=== PATIENT | male | born 1960 | race Hispanic/Latino ===

== ENCOUNTER 2017-11-17 20:14 | Inpatient (IN) | payer MEDICAID ==
[~2017-11-17] VITALS: Ht 172.7 cm; Wt 62.6 kg
[2017-11-17 21:09] LABS: BASOPHILS # (AUTO) 0.1 (0.0-0.1); BASOPHILS % 0.9 % (0.0-1.0); EOSINOPHILS # (AUTO) 0.3 (0.0-0.4); EOSINOPHILS % 5.7 % (0.0-6.0); HEMATOCRIT 26.5 % (38.2-49.6); HEMOGLOBIN 9.2 g/dL (14.0-18.0); LYMPHOCYTES % 17.2 % (18.0-39.1); MEAN CORPUSCULAR HEMOGLOBIN 33.8 pg (28-32); MEAN CORPUSCULAR HGB CONC 34.7 g/dL (31-35); MEAN CORPUSCULAR VOLUME 97.4 fL (81-99); MONOCYTES # (AUTO) 0.5 (0.2-0.8); MONOCYTES % 9.3 % (4.4-11.3); NEUTROPHILS # (AUTO) 3.7 (2.1-6.9); NEUTROPHILS % 66.5 % (38.7-80.0); PLATELET COUNT 65 x10e3/uL (140-360); RED BLOOD COUNT 2.72 x10e6/uL (4.3-5.7); RED CELL DISTRIBUTION WIDTH 14.1 % (11.7-14.4)
[2017-11-17] MEDS: LEVOFLOXACIN 500MG/D5W 100ML 100 ML IV SCH (21:22)
[2017-11-17 21:30] LABS: ALANINE AMINOTRANSFERASE 24 IU/L (0-55); ALBUMIN 2.7 g/dL (3.5-5.0); ALBUMIN/GLOBULIN RATIO 0.8 (0.8-2.0); ALKALINE PHOSPHATASE 125 IU/L (40-150); ANION GAP 12.2 mmol/L (8-16); BLOOD UREA NITROGEN 19 mg/dL (7-26); BUN/CREATININE RATIO 16 (6-25); CALCIUM 8.3 mg/dL (8.4-10.2); CARBON DIOXIDE 23 mmol/L (22-29); CHLORIDE 107 mmol/L (98-107); CREATININE, SERUM 1.21 mg/dL (0.72-1.25); EST GLOMERULAR FILTRATION RATE > 60 ML/MIN (60-); GLUCOSE 118 mg/dL (74-118); POTASSIUM 4.2 mmol/L (3.5-5.1); SODIUM 138 mmol/L (136-145)
[2017-11-17 21:31] LABS: CLARITY,URINE CLOUDY (CLEAR); COLOR,URINE YELLOW (YELLOW); KETONES,URINE NEGATIVE (NEGATIVE); LEUKOCYTE ESTERASE ,URINE TRACE (NEGATIVE); NITRITE,URINE POSITIVE (NEGATIVE); PROTEIN,URINE DIPSTICK TRACE (NEGATIVE); URINE UROBILINOGEN 1 mg/dL (0.2 - 1)
[2017-11-17 21:32] LABS: BILIRUBIN,URINE 1+ (NEGATIVE)
[2017-11-17 21:44] LABS: BACTERIA,URINE MANY /HPF; WBC,URINE (MAN) 21-50 /HPF (0-5)
[2017-11-17 21:45] LABS: EPITHELIAL CELLS,URINE FEW /LPF; MUCUS,URINE MANY (RARE)
[2017-11-17] MEDS: VANCOMYCIN 1GM/NS 250 ML 250 ML IV SCH (22:15)
[2017-11-17] MEDS ORDERED: ACETAMINOPHEN 325 MG TAB PO PRN (22:45)
[2017-11-17] MEDS: SODIUM CHLORIDE 0.9% 1000ML 1,000 ML IV SCH (23:25)
[2017-11-17] MEDS ORDERED: DESCOVY PO (23:30)
[2017-11-17] MEDS ORDERED: LACTULOSE10 GM/151 PO (23:30)
[2017-11-17] MEDS ORDERED: VENTOLIN HFA18 GM INH (23:30)
[2017-11-17] MEDS ORDERED: TIVICAY PO (23:30)
[2017-11-17] MEDS ORDERED: OMEPRAZOLE20 MG PO (23:30)
[2017-11-17] MEDS ORDERED: FUROSEMIDE20 MG PO (23:30)
[2017-11-17] MEDS ORDERED: ZINC50 MG PO (23:30)
[2017-11-17] MEDS ORDERED: PROPRANOLOL HCL10 MG PO (23:30)
[2017-11-17] MEDS ORDERED: SPIRONOLACTONE50 MG PO (23:30)
[2017-11-17] MEDS: MORPHINE SULFATE 2 MG/ML SYR IV PRN (23:48)
[2017-11-17] MEDS: ONDANSETRON HCL INJ 2 MG/ML VIAL IV PRN (23:49)
[2017-11-18 06:15] LABS: BASOPHILS # (AUTO) 0.1 (0.0-0.1); BASOPHILS % 1.1 % (0.0-1.0); EOSINOPHILS # (AUTO) 0.4 (0.0-0.4); EOSINOPHILS % 8.1 % (0.0-6.0); HEMATOCRIT 23.8 % (38.2-49.6); HEMOGLOBIN 8.2 g/dL (14.0-18.0); LYMPHOCYTES # (AUTO) 0.9 (1.0-3.2); LYMPHOCYTES % 18.3 % (18.0-39.1); MEAN CORPUSCULAR HEMOGLOBIN 33.9 pg (28-32); MEAN CORPUSCULAR HGB CONC 34.5 g/dL (31-35); MEAN CORPUSCULAR VOLUME 98.3 fL (81-99); MONOCYTES # (AUTO) 0.4 (0.2-0.8); MONOCYTES % 9.4 % (4.4-11.3); NEUTROPHILS % 62.7 % (38.7-80.0); PLATELET COUNT 64 x10e3/uL (140-360); RED BLOOD COUNT 2.42 x10e6/uL (4.3-5.7); RED CELL DISTRIBUTION WIDTH 14.1 % (11.7-14.4)
[2017-11-18 06:30] LABS: ALANINE AMINOTRANSFERASE 22 IU/L (0-55); ALBUMIN 2.4 g/dL (3.5-5.0); ALBUMIN/GLOBULIN RATIO 0.8 (0.8-2.0); ALKALINE PHOSPHATASE 94 IU/L (40-150); ANION GAP 9.3 mmol/L (8-16); BLOOD UREA NITROGEN 17 mg/dL (7-26); BUN/CREATININE RATIO 15 (6-25); CALCIUM 7.6 mg/dL (8.4-10.2); CARBON DIOXIDE 23 mmol/L (22-29); CHLORIDE 109 mmol/L (98-107); EST GLOMERULAR FILTRATION RATE > 60 ML/MIN (60-); GLUCOSE 92 mg/dL (74-118); POTASSIUM 4.3 mmol/L (3.5-5.1); SODIUM 137 mmol/L (136-145)
[2017-11-18] MEDS: MORPHINE SULFATE 2 MG/ML SYR IV PRN (07:42)
[2017-11-18] MEDS: SODIUM CHLORIDE 0.9% 1000ML 1,000 ML IV SCH ×2 (07:42→17:52)
[2017-11-18] MEDS: ONDANSETRON HCL INJ 2 MG/ML VIAL IV PRN (07:42)
[2017-11-18] MEDS: VANCOMYCIN 1GM/NS 250 ML 250 ML IV SCH ×2 (10:08→22:21)
[2017-11-18 13:30] VITALS: BP 141/78
[2017-11-18] MEDS ORDERED: ALBUTEROL SULFATE HFA 8GM INHALATION AEROSOL INH PRN (15:45)
[2017-11-18] MEDS ORDERED: BACTRIM DS TAB1 EACH PO (15:58)
[2017-11-18] MEDS ORDERED: FERROUS SULFAT325 MG (15:58)
[2017-11-18] MEDS ORDERED: SYMBICORT 80-10.2 GM INH (15:58)
[2017-11-18 15:59] VITALS: BP 133/63
[2017-11-18] MEDS: TRIMETHOPRIM/SULFAMETHOXAZOLE 160-800 MG TAB PO SCH (17:51)
[2017-11-18] MEDS: LACTULOSE SYRUP 20 GM/30 ML UDC PO SCH (17:52)
[2017-11-18] MEDS: FERROUS SULFATE 325 MG TAB PO SCH (17:52)
[2017-11-18] MEDS: PROPRANOLOL HCL 10 MG TAB PO SCH (17:52)
[2017-11-18] MEDS: BUDESONIDE/FORMOTEROL FUMARATE 80/4.5MCG 6.9 GM INH AEROSOL IH SCH (17:54)
--- NOTE | 2017-11-18 18:41 | History and Physical ---
CHIEF COMPLAINT: Right lower extremity cellulitis. HISTORY OF PRESENT ILLNESS: A 57-year-old male, morbidly obese, with history of hypertension and HIV, currently on antiretroviral medication, for which he goes to [facility] in [place] in which he presents to the ED with complaints of right lower extremity redness, cellulitis, and warm to touch that began . Patient reports that he had woken up on evening with questionable subjective fever. He reports that his right lower extremity progressively got worse with worsening swelling and redness. He denies any chest pain, palpitation, nausea, or vomiting. Patient reports that he has not had this in the past. He denies any other complaints at this time. He is not sure if he had any kind of insect bite that occurred to that right lower extremity. REVIEW OF SYSTEMS PERTINENT POSITIVE: Right lower extremity cellulitis, redness, erythema, and tender to palpation. PERTINENT NEGATIVE: Denies any chest pain, palpitation, nausea, vomiting, diarrhea, dysuria, hematuria, frequency, urgency, lightheadedness, dizziness, abdominal pain, headache, shortness of breath, fever, cough, congestion, or any other complaints. The rest of 14-point review of systems have been reviewed with the patient and are negative. ALLERGIES: TO PENICILLIN. HOME MEDICATIONS: Please see med reconciliation form. PAST MEDICAL HISTORY: HIV and hypertension. FAMILY HISTORY: Hypertension and diabetes. SOCIAL HISTORY: No drugs, no alcohol, does not smoke. PHYSICAL EXAMINATION VITAL SIGNS: Temperature is 98.8, pulse 68, respiratory rate is 18, blood pressure is 127/68, and pulse ox is 99% on room air. LABORATORY DATA: Lab findings show white count of 4.7, hemoglobin 8.2, hematocrit is 24, and platelets of 64. Chemistry: Sodium 137, potassium 4.3, chloride 109, bicarb 23, anion gap of 9, BUN 17, creatinine 1.1, glucose 92, lactic acid 9.7, calcium 7.6. Total bilirubin was 2.3, AST 34, ALT 22, alk phos 94, and his albumin was 2.4. Urinalysis showed a UA with wbc's 21-50, leukocyte esterase trace, and positive nitrite. MICROBIOLOGY: Blood and urine cultures are pending. IMAGING STUDIES: None. PHYSICAL EXAM GENERAL: Not in acute distress, alert and oriented x3, cooperative on exam. HEENT: Head normocephalic, atraumatic. Eyes, pupils equal and reactive to light bilaterally. Extraocular movements intact bilaterally. Throat, no evidence of any erythema or exudates in the posterior pharynx. Has poor dentition. NECK: Supple with good range of motion throughout. PULMONARY: Clear to auscultation bilaterally. No wheezing. No rales. No rhonchi. No crackles appreciated. CARDIOVASCULAR: Positive S1 and S2. No murmurs, rubs, or gallops appreciated. ABDOMEN: Soft, nondistended, and nontender to palpation. Bowel sounds present. MUSCULOSKELETAL: Strength is 5/5 throughout. No evidence of any musculoskeletal deficit on examination. No weakness appreciated. NEUROLOGIC: Cranial nerves II through XII grossly intact. No evidence of any neurologic deficits on exam. SKIN: Right lower extremity redness and tender to palpation with some right leg swelling. PSYCHIATRIC: Normal affect and mood. EXTREMITIES: Right lower extremity swelling, tender to palpation, and warm to touch. IMPRESSION 1. Right lower extremity cellulitis, possible underlying insect bite. 2. Anemia. 3. Thrombocytopenia. 4. Hypertension. 5. Human immunodeficiency virus. PLAN: At this time, we will continue with IV vancomycin and Levaquin. Patient has a PENICILLIN allergy. ID has been consulted. We are going to resume all his antihypertensive medications. Resume his antiretroviral medication as well. ID has been consulted to evaluate. Monitor blood and urine cultures. SCDs for DVT prophylaxis as he is currently thrombocytopenic and not a good candidate for any anticoagulation. Put on a regular diet. We will continue to follow. I will also order a lower extremity venous Doppler to evaluate for possible DVT. Job#: [id number] ALEX
[2017-11-18 20:00] VITALS: BP 143/65
[2017-11-18] MEDS: LEVOFLOXACIN 500MG/D5W 100ML 100 ML IV SCH (21:11)
[2017-11-18 21:33] VITALS: BP_SYST 120; BP_SYST 143; BP_DIAS 60; BP_DIAS 65
--- NOTE | 2017-11-18 23:54 | Consultation ---
DATE OF CONSULTATION: November 18, 2017 REASON FOR CONSULTATION: Right lower extremity cellulitis. HISTORY: A 57-year-old male with history of obesity, hypertension, HIV, hepatitis C. Patient goes to [facility] in [place]. The patient is currently with redness and swelling of his right lower extremities for last couple of days. There is no fever, no chills. No specific trauma. Patient is being admitted. Infectious disease was consulted. patient is admitted REVIEW OF SYSTEMS: feeling okk feveris all 14 system within NL HEENT: Negative. PULMONARY: Negative. CARDIAC: Negative. : Negative. SKIN: There is no rash. lower extremity. LABORATORY DATA: White count is 5.58, hemoglobin 9.2, hematocrit 26, platelets 65,000. Sodium 137, potassium 4.3, creatinine 1.1. MEDICATION LIST: Reviewed. He is currently on vancomycin and Levaquin, Symbicort, lactulose, Bactrim, Zofran, furosemide. PHYSICAL EXAMINATION: GENERAL: He is currently alert and oriented, does not seem to be in acute distress. VITALS: Stable, currently afebrile. HEENT: He does not appear icteric. NECK: Supple. CHEST: Clear. HEART: S1 and S2, no murmur. ABDOMEN: Soft. Bowel sounds present. No tenderness. EXTREMITIES: No edema. In the right lower extremity, there is erythema and edema from the knee below to the ankle. IMPRESSION: 1. Cellulitis. Agree with vancomycin 1 g intravenously piggyback q.12h. 2. History of human immunodeficiency virus. 3. History of hepatitis C. Continue with his home medication. 4. Obesity. 5. Thrombocytopenia secondary to his hepatitis I believe. 6. Will follow with you. Job#: [id number] DR CHAND
[2017-11-19] VITALS (8 sets, daily range): BP systolic 105–124; BP diastolic 56–71
[2017-11-19] MEDS: SODIUM CHLORIDE 0.9% 1000ML 1,000 ML IV SCH ×3 (01:32→23:44)
[2017-11-19 04:43] LABS: BASOPHILS % 0.3 % (0.0-1.0); EOSINOPHILS # (AUTO) 0.3 (0.0-0.4); EOSINOPHILS % 7.7 % (0.0-6.0); HEMATOCRIT 21.9 % (38.2-49.6); HEMOGLOBIN 7.7 g/dL (14.0-18.0); LYMPHOCYTES # (AUTO) 0.7 (1.0-3.2); LYMPHOCYTES % 18.6 % (18.0-39.1); MEAN CORPUSCULAR HEMOGLOBIN 34.1 pg (28-32); MEAN CORPUSCULAR HGB CONC 35.2 g/dL (31-35); MEAN CORPUSCULAR VOLUME 96.9 fL (81-99); MONOCYTES # (AUTO) 0.3 (0.2-0.8); MONOCYTES % 9.2 % (4.4-11.3); NEUTROPHILS # (AUTO) 2.2 (2.1-6.9); NEUTROPHILS % 63.9 % (38.7-80.0); PLATELET COUNT 52 x10e3/uL (140-360); RED BLOOD COUNT 2.26 x10e6/uL (4.3-5.7); RED CELL DISTRIBUTION WIDTH 13.6 % (11.7-14.4)
[2017-11-19 04:59] LABS: BLOOD UREA NITROGEN 12 mg/dL (7-26); BUN/CREATININE RATIO 14 (6-25); CALCIUM 7.5 mg/dL (8.4-10.2); CARBON DIOXIDE 21 mmol/L (22-29); CHLORIDE 110 mmol/L (98-107); CREATININE, SERUM 0.84 mg/dL (0.72-1.25); EST GLOMERULAR FILTRATION RATE > 60 ML/MIN (60-); GLUCOSE 98 mg/dL (74-118); SODIUM 136 mmol/L (136-145)
[2017-11-19] MEDS ORDERED: PANTOPRAZOLE SOD 40 MG TABEC PO SCH (07:30)
[2017-11-19] MEDS: BUDESONIDE/FORMOTEROL FUMARATE 80/4.5MCG 6.9 GM INH AEROSOL IH SCH ×2 (08:18→19:00)
[2017-11-19] MEDS: PROPRANOLOL HCL 10 MG TAB PO SCH ×2 (09:42→17:30)
[2017-11-19] MEDS: VANCOMYCIN 1GM/NS 250 ML 250 ML IV SCH ×2 (09:42→21:14)
[2017-11-19] MEDS: FERROUS SULFATE 325 MG TAB PO SCH ×3 (09:42→17:30)
[2017-11-19] MEDS: LACTULOSE SYRUP 20 GM/30 ML UDC PO SCH ×2 (09:42→17:30)
[2017-11-19] MEDS: TRIMETHOPRIM/SULFAMETHOXAZOLE 160-800 MG TAB PO SCH (09:42)
[2017-11-19] MEDS: FUROSEMIDE 20 MG TAB PO SCH (09:42)
[2017-11-19] MEDS ORDERED: TRIMETHOPRIM/SULFAMETHOXAZOLE 160-800 MG TAB PO SCH ×2 (11:05→11:10)
[2017-11-19] MEDS: CEFEPIME HCL 1 GM VIAL IV SCH ×2 (12:37→23:34)
[2017-11-20] VITALS (8 sets, daily range): BP systolic 110–137; BP diastolic 65–73
[2017-11-20 05:24] LABS: BASOPHILS % 0.8 % (0.0-1.0); EOSINOPHILS # (AUTO) 0.4 (0.0-0.4); EOSINOPHILS % 10.2 % (0.0-6.0); HEMATOCRIT 22.4 % (38.2-49.6); HEMOGLOBIN 7.9 g/dL (14.0-18.0); LYMPHOCYTES # (AUTO) 0.8 (1.0-3.2); LYMPHOCYTES % 22.5 % (18.0-39.1); MEAN CORPUSCULAR HEMOGLOBIN 34.8 pg (28-32); MEAN CORPUSCULAR HGB CONC 35.3 g/dL (31-35); MEAN CORPUSCULAR VOLUME 98.7 fL (81-99); MONOCYTES # (AUTO) 0.3 (0.2-0.8); MONOCYTES % 9.3 % (4.4-11.3); NEUTROPHILS # (AUTO) 2.1 (2.1-6.9); NEUTROPHILS % 56.9 % (38.7-80.0); PLATELET COUNT 71 x10e3/uL (140-360); RED BLOOD COUNT 2.27 x10e6/uL (4.3-5.7); RED CELL DISTRIBUTION WIDTH 13.9 % (11.7-14.4)
[2017-11-20 05:45] LABS: ANION GAP 10.3 mmol/L (8-16); BLOOD UREA NITROGEN 11 mg/dL (7-26); BUN/CREATININE RATIO 12 (6-25); CALCIUM 7.8 mg/dL (8.4-10.2); CARBON DIOXIDE 21 mmol/L (22-29); CHLORIDE 112 mmol/L (98-107); CREATININE, SERUM 0.89 mg/dL (0.72-1.25); EST GLOMERULAR FILTRATION RATE > 60 ML/MIN (60-); GLUCOSE 82 mg/dL (74-118); POTASSIUM 4.3 mmol/L (3.5-5.1); SODIUM 139 mmol/L (136-145)
[2017-11-20] MEDS: BUDESONIDE/FORMOTEROL FUMARATE 80/4.5MCG 6.9 GM INH AEROSOL IH SCH ×2 (07:00→19:30)
[2017-11-20] MEDS: PANTOPRAZOLE SOD 40 MG TABEC PO SCH (09:21)
[2017-11-20] MEDS: LACTULOSE SYRUP 20 GM/30 ML UDC PO SCH ×2 (09:22→16:28)
[2017-11-20] MEDS: VANCOMYCIN 1GM/NS 250 ML 250 ML IV SCH ×2 (09:22→21:21)
[2017-11-20] MEDS: PROPRANOLOL HCL 10 MG TAB PO SCH ×2 (09:22→16:28)
[2017-11-20] MEDS: FERROUS SULFATE 325 MG TAB PO SCH ×3 (09:22→16:28)
[2017-11-20] MEDS: FUROSEMIDE 20 MG TAB PO SCH (09:22)
[2017-11-20] MEDS: MORPHINE SULFATE INJ 4 MG/ML INJ IV PRN ×2 (09:24→22:10)
[2017-11-20] MEDS: SODIUM CHLORIDE 0.9% 1000ML 1,000 ML IV SCH ×2 (09:24→21:21)
[2017-11-20] MEDS: CEFEPIME HCL 1 GM VIAL IV SCH ×2 (11:39→23:11)
--- NOTE | 2017-11-20 18:02 | Diagnostic Imaging Report ---
PROCEDURE:EXTREMITY ULTRASOUND COMPARISON:None. INDICATIONS:R/O ABSCESS RT CALF TECHNIQUE:Grayscale and color Doppler ultrasound evaluation analysis of the right posterior calf was performed in the usual manner. FINDINGS: There is diffuse subcutaneous edema of the posterior calf. No abscess is identified. Hypoechoic tubular structures in the posterior calf have no significant color Doppler flow. These may represent thrombosed superficial veins. Note that the deep veins were not evaluated on this study. CONCLUSION: As above Dictated by: Gene Khalil M.D. on 11/20/2017 at 18:07 Electronically approved by: Gene Khalil M.D. on 11/20/2017 at 18:07
[2017-11-20] MEDS: ONDANSETRON HCL INJ 2 MG/ML VIAL IV PRN (22:10)
[2017-11-21] MEDS: BUDESONIDE/FORMOTEROL FUMARATE 80/4.5MCG 6.9 GM INH AEROSOL IH SCH (07:00)
[2017-11-21 07:10] VITALS: BP 136/72
[2017-11-21 08:29] VITALS: BP 136/72
[2017-11-21] MEDS: SODIUM CHLORIDE 0.9% 1000ML 1,000 ML IV SCH ×2 (08:44→16:31)
[2017-11-21] MEDS: FUROSEMIDE 20 MG TAB PO SCH (08:44)
[2017-11-21] MEDS: LACTULOSE SYRUP 20 GM/30 ML UDC PO SCH ×2 (08:44→16:12)
[2017-11-21] MEDS: VANCOMYCIN 1GM/NS 250 ML 250 ML IV SCH (08:44)
[2017-11-21] MEDS: PANTOPRAZOLE SOD 40 MG TABEC PO SCH (08:44)
[2017-11-21] MEDS: FERROUS SULFATE 325 MG TAB PO SCH ×3 (08:44→16:12)
[2017-11-21] MEDS: PROPRANOLOL HCL 10 MG TAB PO SCH ×2 (08:52→16:12)
[2017-11-21] MEDS ORDERED: TRIMETHOPRIM/SULFAMETHOXAZOLE 160-800 MG TAB PO SCH (09:00)
[2017-11-21] MEDS: CEFEPIME HCL 1 GM VIAL IV SCH (11:45)
[2017-11-21 11:53] VITALS: BP 121/67
[2017-11-21 16:09] VITALS: BP 127/65
--- NOTE | 2017-11-21 17:23 | Discharge Summary ---
FINAL DIAGNOSES 1. Right lower extremity cellulitis. 2. Anxiety. 3. Superficial thrombophlebitis in the right lower extremity. 4. Urinary tract infection. CONSULTANTS: Infectious disease. VITAL SIGNS: Temperature is 97.8. Pulse 63. Respiratory rate 20. Blood pressure 157/65, pulse ox 99% on room air. LAB FINDINGS: Show white count 3.6, hemoglobin 7.9, hematocrit was 22, platelets of 71,000. Chemistry: Sodium 139, potassium 4.3, chloride 112, bicarb 21, anion gap of 10. BUN 11, creatinine is 0.89. Glucose is 82. LFTs were normal. Lactic acid 9.7 which was normal in this hospital, albumin 2.4. Urinalysis was consistent with UTI. Vancomycin trough 9.3. MICROBIOLOGY: Urine culture showed E. Coli sensitive to cephalosporins. Blood cultures were negative. IMAGING STUDIES: Venous lower extremity Doppler shows no evidence of DVT. Ultrasound of the extremities showed superficial thrombophlebitis. HOSPITAL COURSE: This is a 57-year-old male, morbidly obese with no HIV who comes in with a right lower extremity cellulitis. Patient was admitted and started on IV antibiotics. ID was consulted. Patient was on vancomycin and Levaquin with much improvement. Blood cultures were negative. Urine culture was consistent with E. Coli sensitive to cephalosporins. Imaging studies showed no evidence of DVT of the venous lower extremity Doppler, but on ultrasound of the right lower extremity showed superficial thrombophlebitis. I educated the patient about warm compresses and a daily baby aspirin 81 mg daily. On discharge patient was doing well with no other complaints. On the day of discharge vital signs were stable, labs reviewed and stable, and the patient was seen and evaluated with no other complaints. The patient verbalized understanding and agreed with the plan of care to follow up as an outpatient with his primary care physician in one week, and infectious disease doctor in one week. The patient will be discharged on oral Keflex 500 mg p.o. t.i.d. times 14 days. MEDICATIONS: See medication record reconciliation form including Keflex 500 mg one tablet p.o. t.i.d. x14 days. DISPOSITION: Home. CONDITION ON DISCHARGE: Stable. DISCHARGE DIET: Heart healthy. FOLLOWUP INSTRUCTIONS: Follow up with your primary care physician in one week, infectious disease in one week. If any worsening symptoms, the patient advised to come back to the ED for further evaluation. Discharge summary took greater than 35 minutes. ERNIE MCELROY MD Job#: [id number] GH
== END 2017-11-21 18:28 | DRG 602 ==
LOC: ER 20:14 → ERHOLD 22:45 → MED/SURG2 11-18 15:06
PROVIDERS: ADMIT Internal Medicine; ATTEND Internal Medicine
DX: L03.115 Cellulitis of right lower limb (principal); B20 Human immunodeficiency virus [HIV] disease; D61.818 Other pancytopenia; N39.0 Urinary tract infection, site not specified; F41.9 Anxiety disorder, unspecified; I80.01 Phlebitis and thrombophlebitis of superficial vessels of right lower extremity; B96.20 Unspecified Escherichia coli [E. coli] as the cause of diseases classified elsewhere; Z16.19 Resistance to other specified beta lactam antibiotics; B18.2 Chronic viral hepatitis C; E66.01 Morbid (severe) obesity due to excess calories; Z68.21 Body mass index [BMI] 21.0-21.9, adult; D64.9 Anemia, unspecified
CPT/HCPCS: 36415; 76882; 80048; 80053; 80202; 81001; 82948; 83605; 85025; 87040; 87086; 87186; 93005; 93970; 94640; 96361; 99284; J0692; J1956; J2270; J2405; J3370; J7030

== ENCOUNTER 2019-01-05 12:35 | Emergency (ER) | payer SELFPAY ==
[~2019-01-05] VITALS: Ht 172.7 cm; Wt 62.6 kg
[~2019-01-05 12:35] MED LIST: BACTRIM DS TAB1 EACH PO; DESCOVY PO; FERROUS SULFAT325 MG; FUROSEMIDE20 MG PO; LACTULOSE10 GM/151 PO; OMEPRAZOLE20 MG PO; PROPRANOLOL HCL10 MG PO; SPIRONOLACTONE50 MG PO; SYMBICORT 80-10.2 GM INH; TIVICAY PO; VENTOLIN HFA18 GM INH; ZINC50 MG PO
--- OUTSIDE RECORDS SUMMARY | 2019-01-05 12:37 | XMS REPORT | Clinical Summary ---
Author Author [facility] Organization [facility] Address Unknown Phone Unavailable Care Team Providers Care Architecture Intern Name Role Phone Deon Carcamo MD PCP Allergies Comments Active Allergy Reactions Severity Noted Date Penicillin Rash, Hives 11/27/2016 Medications End Date Status Medication Sig Dispensed Refills Start Date Active spironolactone Take 2 90 tablet 1 (ALDACTONE) 50 mg tablets by 9 tabletIndications: Other mouth daily. cirrhosis of liver Active dolutegravir (TIVICAY) 50 Take 1 tablet 30 tablet 4 mg tabletIndications: by mouth 9 Asymptomatic human daily. immunodeficiency virus (HIV) infection status Active emtricitabine-tenofovir Take 1 tablet 30 tablet 4 alafen (DESCOVY) 200-25 by mouth 9 mg tabletIndications: daily. Asymptomatic human immunodeficiency virus (HIV) infection status Active propranolol (INDERAL) 10 Take 1 tablet 90 tablet 4 mg tabletIndications: by mouth 3 9 Alcoholic cirrhosis of times daily. liver with ascites Active albuterol 90 Inhale 2 6.7 g 4 mcg/actuation Puffs by 9 inhalerIndications: mouth 4 times Uncomplicated asthma, daily as unspecified asthma needed for severity, unspecified Wheezing. whether persistent Active fluticasone Inhale 1 Puff 60 Each 4 propion-salmeterol by mouth 2 9 (ADVAIR DISKUS) 100-50 times daily. mcg/dose diskus inhalerIndications: Uncomplicated asthma, unspecified asthma severity, unspecified whether persistent Active furosemide (LASIX) 40 mg Take 1 tablet 30 tablet 0 tabletIndications: Other by mouth 9 cirrhosis of liver daily. 04/01/2019 Active lactulose (CONSTULOSE) 10 Take 30 mL by 8100 mL 0 gram/15 mL oral mouth 3 times 9 solutionIndications: daily for 90 Alcoholic cirrhosis of days. liver with ascites 08/05/2018 Discontinued aqhgyxd-gig-hgdbc-tenof Take 1 tablet 30 tablet 5 ALAFEN (GENVOYA) by mouth 7 [phone] mg daily. tabletIndications: Asymptomatic human immunodeficiency virus (HIV) infection status 08/05/2018 Discontinued traMADol (ULTRAM) 50 mg Take 1 tablet 30 tablet 0 tabletIndications: Fall, by mouth 2 7 initial encounter, Chest times daily. wall pain 08/05/2018 Discontinued budesonide-formoterol Inhale 2 2 Inhaler 1 (SYMBICORT) 80-4.5 Puffs by 7 mcg/actuation mouth 2 times inhalerIndications: daily. Essential hypertension, benign, Mild intermittent asthma without complication 08/05/2018 Discontinued eieadmk-qha-gdknv-tenof Take 1 tablet 30 tablet 5 ALAFEN (GENVOYA) by mouth 7 [phone] mg daily. tabletIndications: Asymptomatic human immunodeficiency virus (HIV) infection status 08/05/2018 Discontinued felodipine (PLENDIL) 10 Take 1 tablet 90 tablet 1 mg 24 hr delayed released by mouth 7 tabletIndications: daily. Essential hypertension, benign, Mild intermittent asthma without complication 08/05/2018 Discontinued lisinopril (PRINIVIL) 10 Take 1 tablet 30 tablet 3 mg tabletIndications: by mouth 7 Other cirrhosis of liver daily. 08/05/2018 Discontinued armgrsp-tws-obviz-tenof Take 1 tablet 30 tablet 5 ALAFEN (GENVOYA) by mouth 8 [phone] mg daily. tabletIndications: Asymptomatic human immunodeficiency virus (HIV) infection status 08/05/2018 Discontinued ferrous sulfate 325 mg Take 1 tablet 30 tablet 1 (65 mg iron) by mouth 8 tabletIndications: Iron daily (with deficiency anemia, breakfast). unspecified iron deficiency anemia type 08/05/2018 Discontinued spironolactone Take 1 tablet 90 tablet 1 (ALDACTONE) 50 mg by mouth 8 tabletIndications: Other daily. cirrhosis of liver 08/05/2018 Discontinued furosemide (LASIX) 40 mg Take 1 tablet 30 tablet 0 tabletIndications: Other by mouth 2 8 cirrhosis of liver times daily. 08/05/2018 Discontinued azithromycin (ZITHROMAX) Take 1 tablet 3 tablet 0 500 mg tabletIndications: by mouth 9 Pneumonia due to organism daily for 3 days. 08/05/2018 Discontinued spironolactone Take 2 90 tablet 1 (ALDACTONE) 50 mg tablets by 9 tabletIndications: Other mouth daily. cirrhosis of liver 08/05/2018 Discontinued dolutegravir (TIVICAY) 50 Take 1 tablet 30 tablet 4 mg tabletIndications: by mouth 9 Asymptomatic human daily. immunodeficiency virus (HIV) infection status 08/05/2018 Discontinued emtricitabine-tenofovir Take 1 tablet 30 tablet 4 alafen (DESCOVY) 200-25 by mouth 9 mg tabletIndications: daily. Asymptomatic human immunodeficiency virus (HIV) infection status 08/05/2018 Discontinued lactulose (CONSTULOSE) 10 Take 30 mL by 8100 mL 0 gram/15 mL oral mouth 3 times 9 solutionIndications: daily for 90 Alcoholic cirrhosis of days. liver with ascites 08/05/2018 Discontinued omeprazole (PRILOSEC) 20 Take 1 11 capsule 0 mg delayed release capsule (20 9 capsuleIndications: mg) by mouth Alcoholic cirrhosis of every other liver with ascites day for 2 weeks. Then take 1 capsule by mouth every 4 days for 2 weeks.. 08/05/2018 Discontinued propranolol (INDERAL) 10 Take 1 tablet 30 tablet 4 mg tabletIndications: by mouth 3 9 Alcoholic cirrhosis of times daily. liver with ascites 08/05/2018 Discontinued albuterol 90 Inhale 2 1 Inhaler 4 mcg/actuation Puffs by 9 inhalerIndications: mouth 4 times Uncomplicated asthma, daily as unspecified asthma needed for severity, unspecified Wheezing. whether persistent 08/05/2018 Discontinued fluticasone Inhale 1 Puff 1 Each 4 propion-salmeterol by mouth 2 9 (ADVAIR DISKUS) 100-50 times daily. mcg/dose diskus inhalerIndications: Uncomplicated asthma, unspecified asthma severity, unspecified whether persistent 08/05/2018 Discontinued furosemide (LASIX) 40 mg Take 1 tablet 30 tablet 0 tabletIndications: Other by mouth 2 9 cirrhosis of liver times daily. 08/05/2018 Discontinued furosemide (LASIX) 40 mg Take 1 tablet 30 tablet 0 tabletIndications: Other by mouth 9 cirrhosis of liver daily. 08/08/2018 azithromycin (ZITHROMAX) Take 1 tablet 3 tablet 0 500 mg tabletIndications: by mouth 9 Pneumonia due to organism daily for 3 days. 11/11/2018 Discontinued spironolactone Take 2 90 tablet 1 (ALDACTONE) 50 mg tablets by 9 tabletIndications: Other mouth daily. cirrhosis of liver 11/11/2018 Discontinued dolutegravir (TIVICAY) 50 Take 1 tablet 30 tablet 4 mg tabletIndications: by mouth 9 Asymptomatic human daily. immunodeficiency virus (HIV) infection status 11/11/2018 Discontinued emtricitabine-tenofovir Take 1 tablet 30 tablet 4 alafen (DESCOVY) 200-25 by mouth 9 mg tabletIndications: daily. Asymptomatic human immunodeficiency virus (HIV) infection status 01/01/2019 Discontinued lactulose (CONSTULOSE) 10 Take 30 mL by 8100 mL 0 gram/15 mL oral mouth 3 times 9 solutionIndications: daily for 90 Alcoholic cirrhosis of days. liver with ascites 10/04/2018 omeprazole (PRILOSEC) 20 Take 1 11 capsule 0 mg delayed release capsule (20 9 capsuleIndications: mg) by mouth Alcoholic cirrhosis of every other liver with ascites day for 2 weeks. Then take 1 capsule by mouth every 4 days for 2 weeks.. 11/11/2018 Discontinued propranolol (INDERAL) 10 Take 1 tablet 30 tablet 4 mg tabletIndications: by mouth 3 9 Alcoholic cirrhosis of times daily. liver with ascites 11/11/2018 Discontinued albuterol 90 Inhale 2 6.7 g 4 mcg/actuation Puffs by 9 inhalerIndications: mouth 4 times Uncomplicated asthma, daily as unspecified asthma needed for severity, unspecified Wheezing. whether persistent 11/11/2018 Discontinued fluticasone Inhale 1 Puff 60 Each 4 propion-salmeterol by mouth 2 9 (ADVAIR DISKUS) 100-50 times daily. mcg/dose diskus inhalerIndications: Uncomplicated asthma, unspecified asthma severity, unspecified whether persistent 11/11/2018 Discontinued furosemide (LASIX) 40 mg Take 1 tablet 30 tablet 0 tabletIndications: Other by mouth 9 cirrhosis of liver daily. 09/06/2018 Discontinued cefpodoxime (VANTIN) 200 Take 1 tablet 14 tablet 0 mg tabletIndications: by mouth 2 9 Acute cystitis without times daily hematuria for 7 days. 09/13/2018 cefpodoxime (VANTIN) 200 Take 1 tablet 14 tablet 0 mg tabletIndications: by mouth 2 9 Acute cystitis without times daily hematuria for 7 days. 11/11/2018 Discontinued spironolactone Take 2 90 tablet 1 (ALDACTONE) 50 mg tablets by 9 tabletIndications: Other mouth daily. cirrhosis of liver 11/11/2018 Discontinued dolutegravir (TIVICAY) 50 Take 1 tablet 30 tablet 4 mg tabletIndications: by mouth 9 Asymptomatic human daily. immunodeficiency virus (HIV) infection status 11/11/2018 Discontinued emtricitabine-tenofovir Take 1 tablet 30 tablet 4 alafen (DESCOVY) 200-25 by mouth 9 mg tabletIndications: daily. Asymptomatic human immunodeficiency virus (HIV) infection status 11/11/2018 Discontinued propranolol (INDERAL) 10 Take 1 tablet 30 tablet 4 mg tabletIndications: by mouth 3 9 Alcoholic cirrhosis of times daily. liver with ascites 11/11/2018 Discontinued albuterol 90 Inhale 2 6.7 g 4 mcg/actuation Puffs by 9 inhalerIndications: mouth 4 times Uncomplicated asthma, daily as unspecified asthma needed for severity, unspecified Wheezing. whether persistent 11/11/2018 Discontinued fluticasone Inhale 1 Puff 60 Each 4 propion-salmeterol by mouth 2 9 (ADVAIR DISKUS) 100-50 times daily. mcg/dose diskus inhalerIndications: Uncomplicated asthma, unspecified asthma severity, unspecified whether persistent 11/11/2018 Discontinued furosemide (LASIX) 40 mg Take 1 tablet 30 tablet 0 tabletIndications: Other by mouth 9 cirrhosis of liver daily. Active Problems Problem Noted Date Left-sided chest wall pain 08/19/2018 Anemia 03/14/2017 Fall 03/06/2017 Encounters Care Team Description Date Type Specialty Dank Fagan MD Other cirrhosis of liver; Asymptomatic human immunodeficiency virus (HIV) infection status; Alcoholic cirrhosis of liver with ascites; Uncomplicated asthma, unspecified asthma severity, unspecified whether persistent; Cirrhosis of liver without ascites, unspecified hepatic cirrhosis type 01/01/2019 Hospital Lab Encounter Tunde Bonner MD Larson, Scott, MD Cirrhosis of liver without ascites, unspecified hepatic cirrhosis type (Primary Dx); Alcoholic cirrhosis of liver with ascites 01/01/2019 Office Visit Gastroenterology Skylar Ellis NP Other cirrhosis of liver 11/29/2018 Orders Only 11/11/2018 Ancillary Radiology Procedure Deon Carcamo MD Acute pain of left knee (Primary Dx); Other cirrhosis of liver; Asymptomatic human immunodeficiency virus (HIV) infection status; Alcoholic cirrhosis of liver with ascites; Uncomplicated asthma, unspecified asthma severity, unspecified whether persistent 11/11/2018 Office Visit Infectious Diseases Skylar Ellis NP Encounter for assessment of STD exposure (Primary Dx); Preventative health care 10/02/2018 Office Visit Infectious Diseases Skylar Ellis NP Acute cystitis without hematuria 09/06/2018 Orders Only Infectious Diseases Skylar Ellis NP Medication changed to therapeutic equivalent on formulary (Primary Dx) 09/06/2018 Orders Only Infectious Diseases Skylar Ellis NP Acute cystitis without hematuria (Primary Dx); Other cirrhosis of liver 09/06/2018 Orders Only Lu Muñoz PA Left-sided chest wall pain (Primary Dx) 08/19/2018 Emergency Emergency Medicine Enriqueta Cornell LMSW 08/19/2018 Clinical Case Social Work Mgt Serafin Tubbs [facility] Asymptomatic human immunodeficiency virus (HIV) infection status (Primary Dx) 08/06/2018 Office Visit Clinical Pharmacy Deon Carcamo MD Asymptomatic human immunodeficiency virus (HIV) infection status 08/05/2018 Ancillary Radiology Procedure Deon Carcamo MD Alcoholic cirrhosis of liver with ascites (Primary Dx); Dietary counseling for Above / Below Normal BMI; Exercise counseling for Above Normal BMI Only!; Asymptomatic human immunodeficiency virus (HIV) infection status; Other cirrhosis of liver; Uncomplicated asthma, unspecified asthma severity, unspecified whether persistent; Pneumonia due to organism; Healthcare maintenance 08/05/2018 Office Visit Infectious Diseases Nishi Oconnell 07/25/2018 Clinical Case Social Work Mgt Yaz Tao 07/24/2018 Clinical Case Social Work Mgt after 01/04/2018 Immunizations Name Administration Dates Next Due Hepatitis B Pedi/Adol 01/08/2017 Hepatitis B Vaccine 10/09/2016 Influenza Vaccine, 03/26/2017 Seasonal, Injectable Social History Date Tobacco Use Types Packs/Day Years Used Never Smoker Smokeless Tobacco: Never Used Tobacco Cessation: Counseling Given: No Food Insecurity Answer Date Recorded Within the past 12 months, you worried that your Sometimes true 10/09/2016 food would run out before you got money to buy more. Within the past 12 months, the food you bought Sometimes true 10/09/2016 just didn't last and you didn't have money to get more. Sex Assigned at Date Recorded Not on file Industry Job Start Date Occupation Not on file Not on file Not on file Travel End Travel History Travel Start No recent travel history available. Last Filed Vital Signs Reading Time Taken Comments Vital Sign 139/72 01/01/2019 8:13 AM CDT Blood Pressure 73 01/01/2019 8:13 AM CDT Pulse 36.7 C (98.1 F) 01/01/2019 8:13 AM CDT Temperature 18 01/01/2019 8:13 AM CDT Respiratory Rate 100% 08/19/2018 7:37 PM CDT Oxygen Saturation - - Inhaled Oxygen Concentration 98.2 kg (216 lb 9.6 oz) 01/01/2019 8:13 AM CDT Weight 172.7 cm (5' 8") 01/01/2019 8:13 AM CDT Height 32.93 01/01/2019 8:13 AM CDT Body Mass Index Plan of Treatment Care Team Description Date Type Specialty 8hr fasting 01/23/2019 Appointment Radiology 01/23/2019 Appointment Radiology Deon Carcamo MD [address] [facility] [address] [place], [place] [id number] Labs for Carlos Alberto 02/10/2019 Lab Appointment Lab Deon Carcamo MD [address] [facility] [address] [place] [address] [phone] 02/17/2019 Office Visit Infectious Diseases Health Maintenance Due Date Last Done Comments Colorectal Cancer Scrn 2012 Annual (FIT/FOBT) Age 50 to 75 IMM Influenza Seasonal 01/21/2019 03/26/2017Jan to June (>/=19 yrs) Goals Goal Patient Associated Recent Progress Patient-Stat Author Goal Type Problems ed? Feel more energetic Lifestyle No Irihs, Adali, Awning Hanger Helper Procedures Comments Procedure Name Priority Date/Time Associated Diagnosis PT/INR Routine 01/01/2019 Cirrhosis of liver 10:50 AM CDT without ascites, unspecified hepatic cirrhosis type LIVER PROFILE Routine 01/01/2019 Cirrhosis of liver 10:50 AM CDT without ascites, unspecified hepatic cirrhosis type BASIC METABOLIC PANEL Routine 01/01/2019 Cirrhosis of liver 10:50 AM CDT without ascites, unspecified hepatic cirrhosis type ACTIN (SM) AB Routine 01/01/2019 Cirrhosis of liver 10:50 AM CDT without ascites, unspecified hepatic cirrhosis type [id number] Routine 01/01/2019 Cirrhosis of liver 10:50 AM CDT without ascites, unspecified hepatic cirrhosis type CERULOPLASMIN Routine 01/01/2019 Cirrhosis of liver 10:50 AM CDT without ascites, unspecified hepatic cirrhosis type FERRITIN Routine 01/01/2019 Cirrhosis of liver 10:50 AM CDT without ascites, unspecified hepatic cirrhosis type IRON PROFILE Routine 01/01/2019 Cirrhosis of liver 10:50 AM CDT without ascites, unspecified hepatic cirrhosis type CHIO Routine 01/01/2019 Cirrhosis of liver 10:50 AM CDT without ascites, unspecified hepatic cirrhosis type AFP, TUMOR MARKER Routine 01/01/2019 Other cirrhosis of liver 10:50 AM CDT Asymptomatic human immunodeficiency virus (HIV) infection status Alcoholic cirrhosis of liver with ascites Uncomplicated asthma, unspecified asthma severity, unspecified whether persistent XRAY KNEE 1 OR 2 VIEWS Routine 11/11/2018 Acute pain of left knee (LIMITED-AP/LAT) 11:40 AM CDT CHLAM/GC DNA AMPLI Routine 11/04/2018 Asymptomatic human 9:05 AM CDT immunodeficiency virus (HIV) infection status CBC Routine 11/04/2018 Asymptomatic human 9:04 AM CDT immunodeficiency virus (HIV) infection status SYPHILIS SCREEN FOR Routine 11/04/2018 Asymptomatic human INFECTION 9:04 AM CDT immunodeficiency virus (HIV) infection status LIPID PROFILE Routine 11/04/2018 Asymptomatic human 9:04 AM CDT immunodeficiency virus (HIV) infection status HIV RNA VIRAL LOAD Routine 11/04/2018 Asymptomatic human 9:04 AM CDT immunodeficiency virus (HIV) infection status HEMOGLOBIN A1C Routine 11/04/2018 Asymptomatic human 9:04 AM CDT immunodeficiency virus (HIV) infection status COMPREHENSIVE METABOLIC Routine 11/04/2018 Asymptomatic human PANEL 9:04 AM CDT immunodeficiency virus (HIV) infection status CD4/CD8 RATIO GRP Routine 11/04/2018 Asymptomatic human 9:04 AM CDT immunodeficiency virus (HIV) infection status CBC/DIFF Routine 11/04/2018 Asymptomatic human 9:04 AM CDT immunodeficiency virus (HIV) infection status ANAL PAP TEST CYTOLOGY Routine 10/02/2018 Preventative health care 9:30 AM CDT XRAY CHEST 2 VIEWS STAT 08/19/2018 Left-sided chest wall 6:55 PM CDT pain 12 LEAD EKG Routine 08/19/2018 3:50 PM CDT XRAY CHEST 2 VIEWS Routine 08/05/2018 Asymptomatic human 12:36 PM CDT immunodeficiency virus (HIV) infection status COMPREHENSIVE METABOLIC Routine 08/05/2018 Asymptomatic human PANEL 12:30 PM CDT immunodeficiency virus (HIV) infection status CRYPTOCOCCAL AG-INACTIVE Routine 08/05/2018 Asymptomatic human 12:30 PM CDT immunodeficiency virus (HIV) infection status HEMOCCULT KIT FOR Routine 08/05/2018 Healthcare maintenance SPECIMEN COLLECTION AT 11:54 AM CDT HOME URINALYSIS Routine 07/24/2018 Human immunodeficiency 2:11 PM CDT virus (HIV) disease SYPHILIS MONITOR FOR Routine 07/24/2018 Human immunodeficiency TREATMENT 2:11 PM CDT virus (HIV) disease HIV RNA VIRAL LOAD Routine 07/24/2018 Human immunodeficiency 2:11 PM CDT virus (HIV) disease COMPREHENSIVE METABOLIC Routine 07/24/2018 Human immunodeficiency PANEL 2:11 PM CDT virus (HIV) disease CD4/CD8 RATIO GRP Routine 07/24/2018 Human immunodeficiency 2:11 PM CDT virus (HIV) disease CBC/DIFF Routine 07/24/2018 Human immunodeficiency 2:11 PM CDT virus (HIV) disease after 01/04/2018 Results * AFP, TUMOR MARKER (01/01/2019 10:50 AM CDT) AFP Tumor 3.3 <9.0 ng/mL [facility] Marker Specimen Blood Performing Organization Address City/State/Zipcode Phone Number [facility] [address] [place] [address] * ACTIN (SM) AB (01/01/2019 10:50 AM CDT) Actin (Smooth 18 0 - 19 Units [facility] Muscle) Comment: Antibody Negative 0 - 19 Weak positive 20 - 30 Moderate to strong positive >30 Actin Antibodies are found in 52-85% of patients with autoimmune hepatitis or chronic active hepatitis and in 22% of patients with primary biliary cirrhosis. Specimen Blood Narrative Performed At Performed at:[address] [place] [address] [facility] [address] [place], [id number] Industrial Mechanic: Denise Daniels MD, Phone:[phone] Performing Organization Address [facility] Phone Number [facility] [address] [place] [address] * FERRITIN (01/01/2019 10:50 AM CDT) Pathologist [facility] Ferritin 10.1 (L) 23.9 - 336.2 ng/mL [facility] Specimen Blood Performing Organization Address [facility] Phone Number [facility] [address] [place] [phone] * PT/INR (01/01/2019 10:50 AM CDT) [facility] PT 16.0 (H) 11.8 - 15.0 Seconds [facility] INR 1.3 Refer to INR ranges [facility] Comment: 2.0 - 3.0 for moderate intensity anticoagulation 2.5 - 3.5 for high intensity anticoagulation Specimen Blood Performing Organization Address [facility] Phone Number [facility] [address] [place] [address] * LIVER PROFILE (01/01/2019 10:50 AM CDT) [facility] Total Protein 6.7 6.0 - 8.3 g/dL [facility] Total Bilirubin 2.5 (H) 0.2 - 1.2 mg/dL [facility] Alkaline 144 (H) 34 - 104 U/L [facility] Phosphatase AST 50 (H) 13 - 39 U/L [facility] Direct 0.8 (H) 0.0 - 0.2 mg/dL [facility] Bilirubin ALT 24 7 - 52 U/L [facility] Albumin 3.3 (L) 4.2 - 5.5 g/dL [facility] Specimen Blood Performing Organization Address [facility] Phone Number [facility] [address] [place] [address] * IRON PROFILE (01/01/2019 10:50 AM CDT) [facility] Iron 59 50 - 212 ug/dL [facility] TIBC 423 250 - 450 ug/dL [facility] % Iron Sat 14 % [facility] Transferrin 301.86 203.00 - 362.00 [facility] mg/dL [facility] Specimen Blood Performing Organization Address [facility] Phone Number [facility] [address] [place] [address] * CERULOPLASMIN (01/01/2019 10:50 AM CDT) Pathologist [facility] Ceruloplasmin 22 18 - 58 mg/dL [facility] Specimen Blood Performing Organization Address [facility] Phone Number [facility] [address] [place] [address] * BASIC METABOLIC PANEL (01/01/2019 10:50 AM CDT) [facility] Sodium 137 136 - 145 mmol/L [facility] Potassium 4.4 3.5 - 5.1 mmol/L [facility] Chloride 111 (H) 98 - 107 mmol/L [facility] CO2 22 21 - 31 mmol/L [facility] Urea Nitrogen 16.0 7.0 - 25.0 mg/dL [facility] Creatinine 1.3 0.7 - 1.3 mg/dL [facility] Glucose 105 70 - 110 mg/dL [facility] Calcium, Total 8.4 (L) 8.6 - 10.3 mg/dL [facility] GFR, Estimated 57 (L) >=90 mL/min/1.73 m2 [facility] Anion Gap 4 (L) 5 - 16 mmol/L [facility] Specimen Blood Performing Organization Address [facility] Phone Number [facility] [address] [place] [address] * CHIO (01/01/2019 10:50 AM CDT) [facility] CHIO Screen Negative Negative [facility] Specimen Blood Performing Organization Address [facility] Phone Number [facility] [address] [place] [address] * [id number] (01/01/2019 10:50 AM CDT) [facility] A1 Antitrypsin 141.5 84.0 - 218.0 mg/dL [facility] Specimen Blood Performing Organization Address [facility] Phone Number [facility] [address] [place] [address] * XRAY KNEE 1 OR 2 VIEWS (LIMITED-AP/LAT) (11/11/2018 11:40 AM CDT) Specimen Impressions Performed At IMPRESSION: [facility] No acute radiographic abnormality. Dictated By: Feliciano Campbell MD, 11/11/2018 1:49 PM I have reviewed the study and agree with the findings in this report. Signed By: Hong Esposito MD, 11/11/2018 2:30 PM Narrative Performed At EXAM: LEFT KNEE RADIOGRAPHS [facility] TECHNIQUE: 2 views HISTORY: Left knee pain after fall COMPARISON: None DISCUSSION: No displaced fracture or malalignment. The joint spaces are well maintained, without adjacent osseous erosion. No joint effusion. The soft tissues appear unremarkable. Procedure Note Interface, Rad/Mammog In - 11/11/2018 2:35 PM CDT EXAM: LEFT KNEE RADIOGRAPHS TECHNIQUE: 2 views HISTORY: Left knee pain after fall COMPARISON: None DISCUSSION: No displaced fracture or malalignment. The joint spaces are well maintained, without adjacent osseous erosion. No joint effusion. The soft tissues appear unremarkable. IMPRESSION IMPRESSION: No acute radiographic abnormality. Dictated By: Feliciano Campbell MD, 11/11/2018 1:49 PM I have reviewed the study and agree with the findings in this report. Signed By: Hong Esposito MD, 11/11/2018 2:30 PM Performing Organization Address City/State/Zipcode Phone Number [facility] * CHLAM/GC DNA AMPLI (11/04/2018 9:05 AM CDT) Chlamydia Negative Negative [facility] trachomatis [facility] N. gonorrhoeae Negative Negative [facility] Specimen Other (Specify in Comments) - Voided, urine Narrative Performed At This test utilizes Crowdery Aptima Combo 2 Assay for target amplification of rRNA [facility] for the qualitative detection of Chlamydia trachomatis and Neisseria gonorrhoeae. Performing Organization Address City/State/Zipcode Phone Number [facility] [address] [place] [address] * CBC (11/04/2018 9:04 AM CDT) WBC 2.9 (L) 4.5 - 12.0 K/uL [facility] RBC 2.89 (L) 4.60 - 6.20 M/uL [facility] Hemoglobin 8.5 (L) 14.0 - 18.0 g/dL [facility] Hematocrit 27.3 (L) 40.0 - 54.0 % [facility] MCV 94.5 (H) 82.0 - 92.0 fL [facility] MCH 29.4 27.0 - 31.0 pg [facility] MCHC 31.1 (L) 32.0 - 36.0 g/dL [facility] RDW 56.5 (H) 35.1 - 43.9 fL [facility] Platelet 61 (L) 150 - 400 K/uL [facility] Mean Platelet 12.0 9.4 - 12.4 fL [facility] Volume [facility] Percent NRBC 0.0 % [facility] Neutrophil 52.2 34.0 - 67.9 % [facility] Lymphs 30.9 21.8 - 50.0 % [facility] Monocytes 6.9 5.3 - 12.0 % [facility] Eos 8.7 (H) 0.8 - 5.0 % [facility] Basos 1.0 0.2 - 1.2 % [facility] Immature 0.3 0.0 - 0.5 % [facility] Granulocytes [facility] Neutrophils 1.50 (L) 1.78 - 5.36 K/uL [facility] (Absolute) [facility] Lymphs 0.89 (L) 1.32 - 3.57 K/uL [facility] (Absolute) [facility] Monocytes(Absol 0.20 (L) 0.30 - 0.82 K/uL [facility] [place] [facility] Eos (Absolute) 0.25 0.04 - 0.54 K/uL [facility] Baso (Absolute) 0.03 0.01 - 0.08 K/uL [facility] Immature Grans 0.01 0.00 - 0.03 K/uL [facility] (Abs) [facility] Absolute NRBC 0.00 K/uL [facility] Specimen Blood Performing Organization Address City/State/Zipcode Phone Number [facility] [address] [place] [address] * SYPHILIS SCREEN FOR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
--- OUTSIDE RECORDS SUMMARY | 2019-01-05 12:38 | XMS REPORT | Summary of Care ---
Author Author [facility] - Health Organization [facility] - Health Address Unknown Phone Unavailable Care Team Providers Care Society Editor Name Role Phone Deon Carcamo MD PCP Unavailable Reason for Visit * Reason Comments Refill Request Encounter Details Care Team Description Date Type Department [id number] [place] [address] [phone] Refill Request 08/05/2018 [facility] [address] [place] [phone] Allergies Comments Active Allergy Reactions Severity Noted Date Penicillin Hives, Rash 11/27/2016 documented as of this encounter (statuses as of 01/03/2019) Medications End Date Status Medication Sig Dispensed Refills Start Date Active SPIRONOLACTONE 50 mg TAKE 1 TABLET 30 tablet 2 tablet BY MOUTH 9 DAILY. Active furosemide 40 mg Take 1 tablet 30 tablet 3 tabletIndications: by mouth 9 Decompensated hepatic daily. cirrhosis Active lactulose 10 gram/15 mL Take 30 mL by 946 mL 5 solutionIndications: mouth 2 (two) 9 Hepatic encephalopathy times daily. Active omeprazole 20 mg Take 1 30 capsule 3 capsuleIndications: HIV capsule by 9 (human immunodeficiency mouth daily. virus infection) Active propranolol 10 mg TAKE 1 TABLET 60 tablet 5 tabletIndications: BY MOUTH TWO 9 Hepatic encephalopathy TIMES A DAY FOR ESOPHAGEAL VARICES) Active albuterol (VENTOLIN HFA) Inhale 2 18 g 5 90 mcg/actuation Puffs every 6 9 inhalerIndications: (six) hours Uncomplicated asthma, as needed for unspecified asthma Wheezing or severity, unspecified Shortness of whether persistent Breath. Active emtricitabine-tenofovir Take 1 tablet 30 tablet 11 alafen (DESCOVY) by mouth 9 tabletIndications: HIV daily. (human immunodeficiency virus infection) Active Fluticasone-Salmeterol Inhale 1 Puff 60 Each 5 (ADVAIR DISKUS) 100-50 every 12 9 mcg/dose inhalation (twelve) diskIndications: hours. Uncomplicated asthma, unspecified asthma severity, unspecified whether persistent 09/23/2018 Discontinued dolutegravir (TIVICAY) 50 Take 1 tablet 30 tablet 11 mg tabletIndications: HIV by mouth 9 (human immunodeficiency daily. virus infection) documented as of this encounter (statuses as of 01/03/2019) Active Problems Problem Noted Date Hepatic encephalopathy 08/19/2017 HIV infection 06/14/2017 MONTY (acute kidney injury) 06/14/2017 Alcoholic cirrhosis 06/14/2017 Acute blood loss anemia 06/13/2017 History of colon polyps 06/04/2017 Overview: Added automatically from request for surgery [id number] Decompensated hepatic cirrhosis 04/10/2017 Ascites 04/10/2017 Obesity (BMI 30-39.9) 04/10/2017 documented as of this encounter (statuses as of 01/03/2019) Resolved Problems Problem Noted Date Resolved Date Acute cystitis without hematuria 08/21/2017 07/22/2018 Biliary cirrhosis 06/04/2017 09/03/2017 Overview: Added automatically from request for surgery [id number] documented as of this encounter (statuses as of 01/03/2019) Immunizations Name Administration Dates Next Due HEP B, Adult Dosage 10/09/2016 Hep B, Adol or Pedi 01/08/2017 Dosage Influenza Virus Vaccine 03/26/2017 Influenza Virus Vaccine 01/28/2018 Quad .5 mL IM 6+ MO Pneumococcal 13 07/22/2018 Conjugate, PCV13 (Prevnar 13) Pneumococcal 04/12/2017 Polysaccharide, PPSV23 (PNEUMOVAX) documented as of this encounter Social History Date Tobacco Use Types Packs/Day Years Used Never Smoker Smokeless Tobacco: Never Used Drinks/Week oz/Week Comments Alcohol Use Quit all alcohol 09/2016; previous: 5-6 beers on the weekend No Sex Assigned at Date Recorded Not on file Industry Job Start Date Occupation Not on file Not on file Not on file Travel End Travel History Travel Start No recent travel history available. documented as of this encounter Last Filed Vital Signs Not on filedocumented in this encounter Plan of Treatment Health Maintenance Due Date Last Done Comments DTaP,Tdap,and Td Vaccines 1981 (1 - Tdap) Zoster Recombinant 2012 Vaccine (SHINGRIX) (1 of 2) INFLUENZA VACCINE (#1) 2018 01/28/2018, 03/26/2017 PNEUMOCOCCAL 0-64 YEARS 04/12/2022 07/22/2018, 04/12/2017 COMBINED SERIES (3 of 3 - PPSV23) COLONOSCOPY 08/07/2027 08/06/2017 HEPATITIS C (HCV) SCREEN Completed 09/03/2017 documented as of this encounter Results Not on filedocumented in this encounter
--- OUTSIDE RECORDS SUMMARY | 2019-01-05 12:38 | XMS REPORT | Continuity of Care Document ---
Author Author iTiffin Organization [facility] Address Unknown Phone Unavailable Care Team Providers Care Arts Administrator Or Manager Name Role Phone [facility] Tangible Play Information [place] Unavailable Unavailable Problems Problem Status Onset Date Classification Date Reported Comments Source Anemia Active Problem 11/21/2017 [facility] Cellulitis of right lower leg Active Problem 11/21/2017 [facility] Urinary tract infection Active Problem 11/21/2017 [facility] Medications Medication Details Route Status Patient Instructions Ordering Provider Order Date Source Albuterol Sulfate (Ventolin Hfa) 18 Gm Hfa.aer.ad Every 6 Hours as needed for Shortness Of Breath Active [facility] Budesonide/Formoterol Fumarate (Symbicort 80-4.5 Mcg Inhaler) 10.2 Gm Hfa.aer.ad Twice A Day Active [facility] Descovy 1 Tab Daily Active [facility] Ferrous Sulfate 325 Mg Tablet Three Times Daily With Meals Active [facility] Furosemide 20 Mg Tablet Daily Active [facility] Lactulose 10 Gm/15 Ml Solution Twice A Day Active [facility] Omeprazole 20 Mg Capsule.dr Daily Active [facility] Propranolol Hcl 10 Mg Tablet Twice A Day Active [facility] Spironolactone 50 Mg Tablet Daily Active [facility] Sulfamethoxazole/Trimethoprim (Bactrim Ds Tablet) 1 Each Tablet Twice A Day Active [facility] Tivicay 50 Mg Daily Active [facility] Zinc Gluconate (Zinc) 50 Mg Tablet Twice A Day [facility] Allergies, Adverse Reactions, Alerts Substance Category Reaction Severity Reaction type Status Date Reported Comments Source Penicillin Severe Allergy to Substance Active 11/19/2017 [facility] Immunizations No Data Provided for This Section Results Order Name Results Value Reference Range Date Interpretation Comments Source Serum or plasma trough vancomycin level at trough (mass/volume) Serum or plasma trough vancomycin level at trough (mass/volume) 9.3 5.0 - 10.0 11/20/2017 [facility] Automated blood basophil count (count/volume) Automated blood basophil count (count/volume) 0.0 0.0 - 0.1 11/20/2017 [facility] Automated blood basophil count as percentage of total leukocytes Automated blood basophil count as percentage of total leukocytes 0.8 0.0 - 1.0 11/20/2017 [facility] Automated blood eosinophil count Automated blood eosinophil count 0.4 0.0 - 0.4 11/20/2017 [facility] Automated blood eosinophil count as percentage of total leukocytes Automated blood eosinophil count as percentage of total leukocytes 10.2 0.0 - 6.0 11/20/2017 [facility] Automated blood hematocrit (volume fraction) Automated blood hematocrit (volume fraction) 22.4 38.2 - 49.6 11/20/2017 [facility] Automated blood lymphocyte count as percentage ot total leukocytes Automated blood lymphocyte count as percentage ot total leukocytes 22.5 18.0 - 39.1 11/20/2017 [facility] Automated blood monocyte count as percentage of total leukocytes Automated blood monocyte count as percentage of total leukocytes 9.3 4.4 - 11.3 11/20/2017 [facility] Automated blood neutrophil count Automated blood neutrophil count 2.1 2.1 - 6.9 11/20/2017 [facility] Automated blood platelet count (count/volume) Automated blood platelet count (count/volume) 71 140 - 360 11/20/2017 [facility] Automated blood segmented neutrophil count as percentage of total leukocytes Automated blood segmented neutrophil count as percentage of total leukocytes 56.9 38.7 - 80.0 11/20/2017 [facility] Automated erythrocyte mean corpuscular hemoglobin (mass per erythrocyte) Automated erythrocyte mean corpuscular hemoglobin (mass per erythrocyte) 34.8 28 - 32 11/20/2017 [facility] Automated erythrocyte mean corpuscular hemoglobin concentration measurement (mass/volume) Automated erythrocyte mean corpuscular hemoglobin concentration measurement (mass/volume) 35.3 31 - 35 11/20/2017 [facility] Automated erythrocyte mean corpuscular volume Automated erythrocyte mean corpuscular volume 98.7 81 - 99 11/20/2017 [facility] Blood erythrocytes automated count (number/volume) Blood erythrocytes automated count (number/volume) 2.27 4.3 - 5.7 11/20/2017 [facility] Blood hemoglobin measurement (moles/volume) Blood hemoglobin measurement (moles/volume) 7.9 14.0 - 18.0 11/20/2017 [facility] Blood leukocytes automated count (number/volume) Blood leukocytes automated count (number/volume) 3.64 4.8 - 10.8 11/20/2017 [facility] Blood lymphocytes count (number/volume) Blood lymphocytes count (number/volume) 0.8 1.0 - 3.2 11/20/2017 [facility] Blood monocytes automated count (number/volume) Blood monocytes automated count (number/volume) 0.3 0.2 - 0.8 11/20/2017 [facility] Estimated glomerular filtration rate (GFR) determination Estimated glomerular filtration rate (GFR) determination >60 60 11/20/2017 [facility] Glucose measurement Glucose measurement 82 74 - 118 11/20/2017 [facility] Serum or plasma anion gap Serum or plasma anion gap 10.3 8 - 16 11/20/2017 [facility] Serum or plasma calcium measurement (mass/volume) Serum or plasma calcium measurement (mass/volume) 7.8 8.4 - 10.2 11/20/2017 [facility] Serum or plasma carbon dioxide, total measurement (moles/volume) Serum or plasma carbon dioxide, total measurement (moles/volume) 21 22 - 29 11/20/2017 [facility] Serum or plasma chloride measurement (moles/volume) Serum or plasma chloride measurement (moles/volume) 112 98 - 107 11/20/2017 [facility] Serum or plasma creatinine measurement (mass/volume) Serum or plasma creatinine measurement (mass/volume) 0.89 0.72 - 1.25 11/20/2017 [facility] Serum or plasma potassium measurement (moles/volume) Serum or plasma potassium measurement (moles/volume) 4.3 3.5 - 5.1 11/20/2017 [facility] Serum or plasma sodium measurement (moles/volume) Serum or plasma sodium measurement (moles/volume) 139 136 - 145 11/20/2017 [facility] Serum or plasma urea nitrogen measurement (mass/volume) Serum or plasma urea nitrogen measurement (mass/volume) 11 7 - 26 11/20/2017 [facility] Serum or plasma urea nitrogen/creatinine mass ratio Serum or plasma urea nitrogen/creatinine mass ratio 12 6 - 25 11/20/2017 [facility] Red Cell Distribution Width 13.9 11.7 - 14.4 11/20/2017 [facility] IM GRANULOCYTES % 0.3 0.0 - 1.0 11/20/2017 [facility] Absolute Immature Granulocyte (auto 0.01 0 - 0.1 11/20/2017 [facility] Capillary blood glucose measurement by glucometer (mass/volume) Capillary blood glucose measurement by glucometer (mass/volume) 98 70 - 120 11/19/2017 [facility] Plasma globulin measurement (mass/volume) Plasma globulin measurement (mass/volume) 3.2 2.3 - 3.5 11/18/2017 [facility] Serum or plasma alanine aminotransferase measurement (enzymatic activity/volume) Serum or plasma alanine aminotransferase measurement (enzymatic activity/volume) 22 0 - 55 11/18/2017 [facility] Serum or plasma albumin measurement (mass/volume) Serum or plasma albumin measurement (mass/volume) 2.4 3.5 - 5.0 11/18/2017 [facility] Serum or plasma albumin/globulin mass ratio Serum or plasma albumin/globulin mass ratio 0.8 0.8 - 2.0 11/18/2017 [facility] Serum or plasma alkaline phosphatase measurement (enzymatic activity/volume) Serum or plasma alkaline phosphatase measurement (enzymatic activity/volume) 94 40 - 150 11/18/2017 [facility] Serum or plasma protein measurement (mass/volume) Serum or plasma protein measurement (mass/volume) 5.6 6.5 - 8.1 11/18/2017 [facility] Serum or plasma total bilirubin measurement (mass/volume) Serum or plasma total bilirubin measurement (mass/volume) 2.3 0.2 - 1.2 11/18/2017 [facility] Aspartate Amino Transf (AST/SGOT) 34 5 - 34 11/18/2017 [facility] Automated urine sediment leukocyte count by microscopy (number/high power field) Automated urine sediment leukocyte count by microscopy (number/high power field) <50 0 - 5 11/17/2017 [facility] Bacteria detection in urine sediment by light microscopy Bacteria detection in urine sediment by light microscopy MANY NONE 11/17/2017 [facility] Epithelial cells detection in urine sediment by light microscopy Epithelial cells detection in urine sediment by light microscopy FEW NONE 11/17/2017 [facility] Erythrocytes detection in urine sediment by light microscopy Erythrocytes detection in urine sediment by light microscopy <10 0 - 5 11/17/2017 [facility] Mucus detection in urine sediment by light microscopy Mucus detection in urine sediment by light microscopy MANY RARE 11/17/2017 [facility] Specific gravity of Urine by Test strip Specific gravity of Urine by Test strip 1.030 1.010 - 1.025 11/17/2017 [facility] Urine clarity Urine clarity CLOUDY CLEAR 11/17/2017 [facility] Urine color determination Urine color determination YELLOW YELLOW 11/17/2017 [facility] Urine erythrocytes detection Urine erythrocytes detection NEGATIVE NEGATIVE 11/17/2017 [facility] Urine glucose detection Urine glucose detection NEGATIVE NEGATIVE 11/17/2017 [facility] Urine ketones detection by automated test strip Urine ketones detection by automated test strip NEGATIVE NEGATIVE 11/17/2017 [facility] Urine leukocyte esterase detection by dipstick Urine leukocyte esterase detection by dipstick TRACE NEGATIVE 11/17/2017 [facility] Urine nitrite detection Urine nitrite detection POSITIVE NEGATIVE 11/17/2017 [facility] Urine pH measurement by automated test strip Urine pH measurement by automated test strip 6 5 - 7 11/17/2017 [facility] Urine protein measurement by test strip (mass/volume) Urine protein measurement by test strip (mass/volume) TRACE NEGATIVE 11/17/2017 [facility] Urine total bilirubin measurement (mass/volume) Urine total bilirubin measurement (mass/volume) 1+ NEGATIVE 11/17/2017 [facility] Urine urobilinogen measurement by test strip (mass/volume) Urine urobilinogen measurement by test strip (mass/volume) 1 0.2 - 1 11/17/2017 [facility] Blood culture Blood culture NO GROWTH AFTER 72 HOURS 11/17/2017 [facility] Lactic Acid Level 9.7 4.5 - 19.8 11/17/2017 [facility] Bacterial urine culture Bacterial urine culture Urine Culture [facility] Pathology Reports No Data Provided for This Section Diagnostic Reports No Data Provided for This Section Consultation Notes No Data Provided for This Section Discharge Summaries No Data Provided for This Section History and Physicals No Data Provided for This Section Vital Signs No Data Provided for This Section Encounters Location Location Details Encounter Type Encounter Number Reason For Visit Attending Provider ADM Date DC Date Status Source Discharged Inpatient [id number] ERNIE MCELROY MD 11/17/2017 11/21/2017 [facility] Procedures Procedure Code Date Perfomer Comments Source Limited non-vascular ultrasound of extremity [id number] 11/20/2017 KALYAN [facility] Assessment and Plan No Data Provided for This Section Plan of Care Plan of Care Date Source Discharge Date 11/21/17 6:28pm Disposition [facility] ([facility]) Instructions/Education Provided Rash - Nonspecific Urinary Tract Infection - Men Prescriptions See Medication Section Referrals CLARA BIGGS MD (Internal Medicine) Entered Date: 11/21/2017 4:55pm Address: [address] [place] [address] [place] [address] Note: Infectious Disease. Follow up in 1 week. Additional Instructions/Education Follow up with in 1 week. Follow up with PCP in 1 week. 11/21/2017 [facility] Social History Social History Date Source Smoking Status Start Date Stop Date Never Smoker 11/21/2017 [facility] Family History No Data Provided for This Section Advance Directives Order Name Results Value Date Source Advance Directives Advance Directives Directive Response Recorded Date/Time Does the patient have an advance directive? No 11/18/17 1:30pm If yes, is advance directive on file with [facility]? No 11/18/17 1:30pm If not on file with [facility] will patient provide a copy? Yes 11/18/17 1:30pm Do you have a Directive to Physician? No 11/17/17 8:40pm Do you have a Medical Power of Vortex Operator? No 11/17/17 8:40pm Do you have an out of hospital Do Not Resuscitate Order? No 11/17/17 8:40pm Do you have any special needs we should be aware of? No 11/17/17 8:40pm Do you have a support person here with you today? Yes 11/17/17 8:40pm Did patient receive Notice of Privacy Practices? Yes 11/17/17 8:40pm Did patient receive patient rights and responsibilities? Yes 11/17/17 8:40pm 11/21/2017 [facility] Functional Status No Data Provided for This Section
--- OUTSIDE RECORDS SUMMARY | 2019-01-05 12:38 | XMS REPORT | Clinical Summary ---
Author Author JAKE [facility] Address Unknown Phone Unavailable Care Team Providers Care Manager Universal Name Role Phone Sharpless PCP Allergies Comments Active Allergy Reactions Severity Noted Date Penicillins Hives 04/03/2017 Medications End Date Status Medication Sig Dispensed Refills Start Date Active felodipine (PLENDIL) 10 Take 10 mg by 0 MG 24 hr tablet mouth daily. Active lisinopril Take 10 mg by 0 (PRINIVIL,ZESTRIL) 10 MG mouth daily. tablet Active furosemide (LASIX) 40 MG Take 40 mg by 0 tablet mouth 2 (two) times daily. Active budesonide-formoterol Inhale 2 0 (SYMBICORT) 160-4.5 puffs by mcg/actuation inhaler mouth via inhaler 2 (two) times daily. Active iron Take 1 tablet 0 [id number] by mouth 150 mg iron-200 mg-250 daily. mcg tablet Active ELVITEG/COB/EMTRI/TENOF Take by 0 ALAFEN (GENVOYA ORAL) mouth. Active SPIRONOLACTONE ORAL Take by 0 mouth. 04/03/2018 albuterol HFA (VENTOLIN Inhale 1-2 1 Inhaler 0 HFA) 90 mcg/actuation puffs by 7 inhaler mouth via inhaler every 6 (six) hours as needed for Wheezing. Active Problems Not on file Social History Date Tobacco Use Types Packs/Day Years Used Never Smoker Smokeless Tobacco: Never Used Alcohol Use Drinks/Week oz/Week Comments No Sex Assigned at Date Recorded Not on file Industry Job Start Date Occupation Not on file Not on file Not on file Travel End Travel History Travel Start No recent travel history available. Last Filed Vital Signs Not on file Plan of Treatment Not on file Results Not on fileafter 01/04/2018
[2019-01-05] MEDS ORDERED: LIDOCAINE HCL 1% LOCAL INJ 20 ML VIAL ONE (12:46)
[2019-01-05 12:49] VITALS: BP 132/70
[2019-01-05] MEDS ORDERED: LIDOCAINE HCL 1% 2 ML AMP INJ ONE (13:00)
== END 2019-01-05 13:15 | disposition home or self-care (01) ==
LOC: ER 12:35
DX: L02.611 Cutaneous abscess of right foot (principal); I10 Essential (primary) hypertension; B20 Human immunodeficiency virus [HIV] disease; Z87.19 Personal history of other diseases of the digestive system
CPT/HCPCS: 10060; 99283; J2001

== ENCOUNTER 2019-03-17 14:50 | Emergency (ER) | payer SELFPAY ==
[~2019-03-17] VITALS: Ht 172.7 cm; Wt 62.6 kg
--- NOTE | 2019-03-17 15:21 | NUR ---
[employer] CALLED TO CALL OUT FOR VENOUS DOPPLER.
== END 2019-03-17 16:44 | disposition home or self-care (01) ==
LOC: ER 14:50
DX: L03.115 Cellulitis of right lower limb (principal); I10 Essential (primary) hypertension; J45.909 Unspecified asthma, uncomplicated
CPT/HCPCS: 93971; 99283

== ENCOUNTER 2019-05-25 17:03 | Emergency (ER) | payer SELFPAY ==
[~2019-05-25] VITALS: Ht 172.7 cm; Wt 62.6 kg
[2019-05-25] MEDS ORDERED: SODIUM CHLORIDE 0.9% 500ML 500 ML IV STA (17:14)
[2019-05-25] MEDS ORDERED: CEFTRIAXONE SOD 1 GM VIAL IV ONE (17:15)
[2019-05-25] MEDS ORDERED: ONDANSETRON HCL INJ 2MG/ML 2ML 2 MG/ML VIAL IV PRN (17:15)
[2019-05-25 17:54] LABS: BASOPHILS % 0.8 % (0.0-1.0); EOSINOPHILS # (AUTO) 0.3 (0.0-0.4); EOSINOPHILS % 7.3 % (0.0-6.0); HEMATOCRIT 28.6 % (38.2-49.6); HEMOGLOBIN 9.1 g/dL (14.0-18.0); LYMPHOCYTES # (AUTO) 1.1 (1.0-3.2); LYMPHOCYTES % 29.9 % (18.0-39.1); MEAN CORPUSCULAR HEMOGLOBIN 28.6 pg (28-32); MEAN CORPUSCULAR HGB CONC 31.8 g/dL (31-35); MEAN CORPUSCULAR VOLUME 89.9 fL (81-99); MONOCYTES # (AUTO) 0.2 (0.2-0.8); MONOCYTES % 6.4 % (4.4-11.3); NEUTROPHILS % 55.3 % (38.7-80.0); PLATELET COUNT 81 x10e3/uL (140-360); RED BLOOD COUNT 3.18 x10e6/uL (4.3-5.7); RED CELL DISTRIBUTION WIDTH 16.4 % (11.7-14.4)
[2019-05-25] MEDS ORDERED: PANTOPRAZOLE 40 MG 10ML VIAL IV ONE (18:00)
[2019-05-25 18:01] LABS: INR 1.34
[2019-05-25 18:02] LABS: PARTIAL THROMBOPLASTIN TIME 33.1 seconds (23.8-35.5)
--- NOTE | 2019-05-25 18:07 | Diagnostic Imaging Report ---
EXAMINATION: CHEST 2 VIEWS INDICATION: ^cough, ams ^[id number] ^[id number] COMPARISON: None FINDINGS: PA and lateral views TUBES and LINES: None. LUNGS: Lungs are well inflated. There is no evidence of pneumonia or pulmonary edema. PLEURA: No pleural effusion or pneumothorax. HEART AND MEDIASTINUM: The cardiomediastinal silhouette is unremarkable. BONES AND SOFT TISSUES: No acute osseous lesion. Soft tissues are unremarkable. UPPER ABDOMEN: No free air under the diaphragm. IMPRESSION: No acute thoracic abnormality. Signed by: Joshua Levy MD on 05/25/2019 6:05 PM
[2019-05-25 18:11] LABS: BILIRUBIN,URINE NEGATIVE (NEGATIVE); CLARITY,URINE HAZY (CLEAR); COLOR,URINE AMBER (YELLOW); KETONES,URINE NEGATIVE (NEGATIVE); LEUKOCYTE ESTERASE ,URINE NEGATIVE (NEGATIVE); NITRITE,URINE POSITIVE (NEGATIVE); PROTEIN,URINE DIPSTICK NEGATIVE (NEGATIVE); URINE UROBILINOGEN 1 mg/dL (0.2 - 1)
[2019-05-25 18:12] LABS: ALANINE AMINOTRANSFERASE 22 IU/L (0-55); ALBUMIN 2.9 g/dL (3.5-5.0); ALBUMIN/GLOBULIN RATIO 0.8 (0.8-2.0); ALKALINE PHOSPHATASE 105 IU/L (40-150); ANION GAP 11.1 mmol/L (8-16); BLOOD UREA NITROGEN 18 mg/dL (7-26); BUN/CREATININE RATIO 20 (6-25); CALCIUM 8.6 mg/dL (8.4-10.2); CARBON DIOXIDE 20 mmol/L (22-29); CHLORIDE 112 mmol/L (98-107); CREATININE, SERUM 0.92 mg/dL (0.72-1.25); EST GLOMERULAR FILTRATION RATE > 60 ML/MIN (60-); GLUCOSE 88 mg/dL (74-118); MAGNESIUM 1.8 MG/DL (1.3-2.1); POTASSIUM 4.1 mmol/L (3.5-5.1); SODIUM 139 mmol/L (136-145)
[2019-05-25 18:17] LABS: AMORPHOUS SEDIMENT,URINE FEW (FEW); BACTERIA,URINE MANY /HPF; EPITHELIAL CELLS,URINE FEW /LPF; MUCUS,URINE FEW (RARE)
[2019-05-25] MEDS ORDERED: LACTULOSE SYRUP 20 GM/30 ML UDC PO ONE (18:30)
[2019-05-25] MEDS ORDERED: CEFTRIAXONE SOD 1 GM/NS 50 ML 50 ML IV ONE (18:45)
--- NOTE | 2019-05-25 18:58 | Diagnostic Imaging Report ---
CT BRAIN WO HISTORY: Altered mental status COMPARISON: None. TECHNIQUE: Noncontrast axial scans were obtained from skull base to the vertex. Coronal and sagittal reconstructions obtained from the axial data. One or more of the following dose reduction techniques were used: Automated exposure control, adjustment of the mA and/or kV according to patient size, and/or utilization of iterative reconstruction technique. Beam hardening artifacts obscure some details. DISCUSSION: Scalp/Skull: Unremarkable. Brain sulci: Appropriate for patient's age. Ventricles: Normal in size and configuration. No hydrocephalus. Extra-axial spaces: No masses or fluid collections. Carotid siphon calcifications are present. Parenchyma: No abnormal densities. No mass, hemorrhage, or large vascular territory acute infarct. Dural sinuses: No abnormal densities. Sellar/Suprasellar region: Grossly unremarkable. Skull base: Intact. Incidental findings: Bilateral sphenoidotomy, nasal septectomy, left ethmoidectomy, and left turbinectomy changes are partially imaged. Mild bilateral maxillary sinus mucosal thickening is also partially imaged, right greater than left. 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 IMPRESSION: No acute intracranial abnormalities. Signed by: Dr. Reynaldo Schwartz M.D. on 05/25/2019 6:55 PM
[2019-05-25 19:13] VITALS: BP 157/84
== END 2019-05-25 19:15 | disposition home or self-care (01) ==
LOC: ER 17:03
DX: R41.82 Altered mental status, unspecified (principal); N30.91 Cystitis, unspecified with hematuria; I10 Essential (primary) hypertension; D64.9 Anemia, unspecified; J45.909 Unspecified asthma, uncomplicated; B20 Human immunodeficiency virus [HIV] disease
CPT/HCPCS: 36415; 70450; 71046; 80053; 81001; 82140; 83735; 85025; 85610; 85730; 99284; C9113; J0696